=== PATIENT | female | born 1955 | race Caucasian/White ===

== ENCOUNTER → 2017-11-22 09:02 | Day surgery (SDC) | payer MEDICARE, MEDICAID ==
[~2017-11-22 09:02] MED LIST: Buffered Lidocaine 0.9% SYRIN* 5 ML/SYR SYRINGE INTRADERM ONE; Clindamycin 900 MG/D5W BAG(*) 900 MG/50 ML BAG IVPB ONE; Dexamethasone IV* 4 MG/ML 1 ML (4 MG) IV SLOW PU ONE; Dexamethasone IV* 4 MG/ML 1 ML (4 MG) ONE; DiMENhydriNATE IV* 50 MG/ML VIAL IV PUSH PRN; Famotidine IV* 10 MG/ML 2 ML (20 mg) IV ONE; Famotidine IV* 10 MG/ML 2 ML (20 mg) ONE; HYDROmorphone INJ1* 1 MG/ML SYRINGE IV PRN; Ketorolac INJ* 30 MG/ML 1 ML VIAL ONE; Lidocaine 2% PF * 5 ML VIAL ONE; Midazolam* 1 MG/ML 2 ML VIAL (2 MG) ONE; Naloxone* 0.4 MG/ML 1 ML VIAL IV PRN; Ondansetron INJ* 2 MG/ML VIAL ONE; Propofol* 10 MG/ML 20 ML BTL IV PUSH ONE; ROPIVACAINE 5 MG/ML 30 ML BTL (0.5%) ONE; fentaNYL* 50 MCG/ML 2 ML VIAL (100 MCG VIAL) IV PRN; fentaNYL* 50 MCG/ML 2 ML VIAL (100 MCG VIAL) ONE
[2017-11-22 15:32] VITALS: BP 139/86
--- NOTE | 2017-11-23 15:19 | OP ---
DATE OF OPERATION: 11/22/17 - [facility] DATE OF : 55. SURGEON: Wood Templeton MD. PUSHER OPERATOR: KYRA Berman. ANESTHESIOLOGIST: Dr. Sky. ANESTHESIA: General. 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 OPERATIVE PROCEDURE: 1. Left ulnar nerve decompression at the elbow with anterior transmuscular transposition. 2. Left ulnar nerve decompression at the wrist. 3. Excision of the left hook of the hamate. INDICATIONS: Galina had something strike the palm a couple of months and since then she has developed very rapid, progressive weakness and clumsiness in the left hand. She had some bruising in the palm after the injury. She is very tender over the hook of the hamate on exam. I have gotten x-rays and electrodiagnostic studies which showed severe compression at the elbow as well. I told her we should decompress the nerve at the wrist and at the elbow and given the likelihood of hook of the hamate nonunion, I would excise that as well. She understands the risks including risk of stiffness, risk of tendon adhesions, risks of neurovascular injury. She wanted to proceed. ESTIMATED BLOOD LOSS: 2 mL. COMPLICATIONS: None. FINDINGS: See above and below. DESCRIPTION OF PROCEDURE: Galina was seen in the preoperative holding area. The correct site, side, and procedure were identified. We came back to the operating room where the arm was prepped and draped in the usual fashion. A time-out was performed. The arm was exsanguinated with the Esmarch and the tourniquet was inflated to 250 mmHg. I made a longitudinal incision in the proximal palm over the ulnar wrist in a Dev-type fashion. Full-thickness flaps were raised off the fascia. I went ahead and released the fascia overlying the Guyon's canal. There was one vascular branch crossing over the ulnar nerve that had the potential to compress the nerve. I cauterized that with bipolar cautery and released it. I decompressed both sensory branches and then decompressed the motor branch by generally retracting the nerve out of the way and releasing the fascia of the hypothenar, both superficially and deeply until the nerve was completely decompressed. I then went ahead and released the soft tissue circumferentially about the hook of the hamate. I then used a rongeur to excise the hook of the hamate in its entirety. Once I had a nice smooth edge at the base where it had been excised, I covered that with bone wax for hemostasis. At this point, everything was looking good. So, we irrigated out that wound and the skin was closed with 4-0 nylon suture. I then turned our attention to the elbow. The arm was abducted and externally rotated. A curvilinear incision was made over the Lopez's ligament. Dissection was carried down. The medial antebrachial cutaneous nerve was identified and protected throughout the case. The fascia proximally and distally was released over the ulnar nerve from the arcade of [place], all the way down well distal to the medial epicondyle, releasing the entirety of the FC fascia and subfascial layers. The motor branch of the FCU was mobilized. I used a vessel loop to gently retract the nerve as I performed a neurolysis. I excised the medial intermuscular septum. I raised full thickness flaps off of the flexor pronator fascia. I then raised stepcut type flaps from the fascia, leaving the muscular bed deep to that. The septae were excised. The two ends of the fascial flaps were sewed end to end with 4-0 Ethibond suture. I checked to make sure that there was absolutely nothing kinking the nerve. There was nothing compressing or kinking the nerve and so hemostasis was obtained with the Bovie. The wound was irrigated out. The subcutaneous tissue was reapproximated with 3-0 Vicryl sutures. The skin was closed with 3-0 Monocryl suture and Steri-Strips. The operative sites were infiltrated with ropivacaine. The wounds were dressed and the arm was placed in a long arm splint with a lateral buttress. Tourniquet was deflated. She was taken to recovery room in stable condition [id number]/[facility] #: [id number] [facility]ITALJose
== END | disposition home or self-care (01) ==
LOC: OREAST 09:02
PROVIDERS: ATTEND Orthopaedic Surgery Hand Surgery
DX: G56.22 Lesion of ulnar nerve, left upper limb (principal); Z87.891 Personal history of nicotine dependence; M19.90 Unspecified osteoarthritis, unspecified site; F41.9 Anxiety disorder, unspecified; J30.2 Other seasonal allergic rhinitis; Z85.3 Personal history of malignant neoplasm of breast
CPT/HCPCS: 88304; 88311; J1100; J1885; J2250; J2405; J2704; J2795; J3010